=== PATIENT | male | born 1970 | race African-American/Black ===

== ENCOUNTER 2017-03-19 15:14 | Inpatient (IN) ==
--- NOTE | 2017-03-19 15:49 | Emergency Department Note ---
Carmela Morgan Mantricia, am scribing for, and in the presence of, Kennedy Hernandes MD 15:45. Greta Morgan James D, MD, personally performed the services described in this documentation, ascribed by Jorge Casey in my presence, and it is both accurate and complete . Arrival - Arrival Chief Complaint: Chest Pain ED Nursing Triage Note: PT SMOKED SPICE AND WENT TO [facility] FOR TREATMENT. Mode of Arrival: Stretcher Limitations: No Limitations Source: Patient, RN Notes Reviewed Time Seen by Provider: 03/19/17 15:34 - History of Present Illness HPI Narrative: Pt is a 46 y/o black female arriving to ED by EMS with c/o chest pain that onset last night. Pt was seen at [facility] for chest pain. It was realized that pt had an elevated troponin level, so he was called back to [facility]. Pt's troponin level was the same, so he was then transferred here. At time of exam, pt denies any chest pain. He does admit to smoking spice last night, before returning to [facility]. Pt denies having any heart problems. He also admits to smoking cigars daily and consuming ETOH occasionally. No other complaints were reported to ED. Onset (ago): hour(s) Consistency: constant Severity: mild Allergies/Adverse Reactions: Allergies Allergy/AdvReac Type Severity Reaction Status Date / Time cephalexin [From Keflex] Allergy RASH Verified 06/17/15 04:21 sulfamethoxazole Allergy RASH Verified 06/17/15 04:21 [From Bactrim] trimethoprim [From Bactrim] Allergy RASH Verified 06/17/15 04:21 Home Medications: Home Medications Medication Instructions Recorded Confirmed Type No Known Home Medications [No 03/19/17 03/19/17 History Known Home Medications] Review of System - Review of System 12 point system: reviewed and no additional remarkable complaints except as stated - Review of System Constitutional: Present: other (smoked spice). Absent: chills, diaphoresis, fever Respiratory: Absent: cough Cardiovascular: Present: chest pain. Absent: palpitations Gastrointestinal: Absent: abdominal pain, nausea, vomiting Medical,Surgical,& Family Hx - Social History Smoking Status: Smoker, status unknown Exam Physical Examination: ADULT: GENERAL: This is a well-nourished, well-developed black male in no apparent distress. VITAL SIGNS: Reviewed HEENT: Head is normocephalic and atraumatic. Pupils are equally round and reactive to light. Extraocular movement are intact. Oropharynx is benign with moist mucous membranes. NECK: Neck is soft and supple without tenderness. There are no masses. There is no lymphadenopathy. LUNGS: Lungs are clear to auscultation bilaterally. Chest rises symmetrically. There is no chest wall tenderness. CV: Heart is regular rate and rhythm without murmurs, rubs, or gallops. ABDOMEN: Abdomen is soft, non-tender to palpation. There are no abnormal masses palpated. There is no organomegaly. Bowel sounds are present and active. SKIN: Skin is warm and dry. No rash. EXTREMITIES: Patient has full range of motion without tenderness. There is no pedal edema. NEUROLOGIC: Awake, alert, and oriented x4. Cranial nerves II through XII are grossly intact. There are no motorsensory deficits. PSYCHIATRIC: Normal affect. Normal mood. Vital Signs: Vital Signs Temperature 97.8 F 03/19/17 15:20 Pulse Rate 56 L 03/19/17 16:45 Respiratory Rate 23 03/19/17 16:45 Blood Pressure 142/75 03/19/17 16:45 O2 Sat by Pulse Oximetry 100 03/19/17 16:45 Course Course Narrative: Patient was not felt to need hospitalization regarding cardiac disease however after the hospitalist saw him he went outside and smoke some more spice and is now having hallucinations. The patient will be admitted due to his drug abuse and complications from his recent use of spice. - Consultations Consultation #1: Discussed with hospitalist. Patient will be seen in the emergency department. Patient will be admitted to their service. Time: 16:18 Results - Labs Lab Results: I have reviewed the patients labs - EKG EKG results: interpreted by ERMD - Impressions EKG: Sinus bradycardia with a rate of 53, LVH with repolarization abnormality. - Diagnostic Findings Procedure: Chest x-ray: image reviewed by me (C[facility] x[facility]ray from [facility]: No cardiomegaly, no infiltrates, no pleural effusions.) Disposition Clinical Impression: Chest pain, Elevated troponin, Spice abuse Case discussed with: patient Disposition: Still a Patient Condition: Stable Time of Disposition: 16:18
--- NOTE | 2017-03-19 15:49 | EKG Report ---
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
--- NOTE | 2017-03-19 18:29 | Hospitalist History & Physical ---
Assessment and Plan (1) Chest pain Status: Acute Assessment and plan: Patient with a mildly elevated troponin 0.172 in the context of smoking spice and with an EKG that shows LVH with ST-T changes. My recommendation would be to watch him at this time and see how he does as his delirium clears make a decision at that point whether or not he needs noninvasive screening my plan at this time would be to give him serial cardiac isoenzymes repeat EKG if he has more chest pain and watch carefully Current Visit: Yes (2) Marijuana intoxication Status: Acute Assessment and plan: This is a patient's been smoking spice the last couple of days presented with delirium and chest pain he is currently not have any chest pain at this time he is semi-alert his judgment is poor he knows where he is and what year it is. He has no signs and symptoms of acute severe intoxication there is no evidence of seizures no evidence of arrhythmias my plan at this time spent in the ICU to manage his agitation will use benzodiazepines and will watch him carefully been given some IV fluids and start him on some thiamine will watch carefully while he is here in the hospital. No need for mechanical ventilation or other supportive measures Current Visit: Yes History of Present Illness Chief complaint: Spice intoxication History of present illness: Mr. Burdick is a 46 year old male patient presented with chest pain that started last night was seen at [facility] was found to have an elevated troponin and was asked to come back to show but was found to have a troponin he admitted to smoking spice last night and apparently left from the ER and smoked it again he continues smokes cigars and consumes EtOH occasionally currently he is awake and alert he denies any chest pain or chest tightness no shortness of breath PND or orthopnea Home Medications Medication Instructions Recorded Confirmed Type No Known Home Medications [No 03/19/17 03/19/17 History Known Home Medications] Allergies Allergy/AdvReac Type Severity Reaction Status Date / Time cephalexin [From Keflex] Allergy RASH Verified 06/17/15 04:21 sulfamethoxazole Allergy RASH Verified 06/17/15 04:21 [From Bactrim] trimethoprim [From Bactrim] Allergy RASH Verified 06/17/15 04:21 Medical,Surgical,& Family Hx - Family History Family History: Denies;: Family Cancer, Family Psychiatric Problems - Social History Smoking Status: Current every day smoker Time spent discussing smoking cessation with patient: 3 to 10 minutes Frequency of Alcohol Use: Unknown Type of Drug Use: Marijuana Review of systems: Constitutional: No fatigue or fever Eyes: No loss of vision or blurred vision Ears: No decreased hearing no ear pain Mouth no lip swelling or sore throat Cardiovascular no chest pain no claudication Respiratory no cough or shortness of breath GI no abdominal pain or bloating or bleeding : No urinary frequency or hesitancy musculoskeletal: No Arthralgias or back pain Psychiatric: Confusion memory loss Endocrine: No polydipsia or polyuria Hematology: No easy bleeding or bruising 12 point review of systems otherwise unremarkable Exam - Constitutional Vitals: Period Temp Pulse Resp BP Sys/Garcia Pulse Ox Last 24 Hr 97.8 F-97.8 F 55-61 16-23 134-153/71-79 100-100 Exam: Constitutional: Patient in no apparent distress. Patient currently agitated Eyes: Conjunctivae and lids are normal Pupils equal round react to light and accommodation irises are normal HEENT: External ears and nose without lesions masses or scarring Oropharynx without erythema exudates or thrush Neck is supple without masses no jugular venous distention Lungs: Lungs are clear to auscultation and resonant percussion Cardiovascular: Heart auscultation regular rate and rhythm without murmur rub or gallop PMI in the midclavicular line by palpation carotid arteries 2+ without bruits bowel abdomen: Bowel sounds normoactive no masses no rebound or regular tenderness no organomegaly Lymphatic: No anterior posterior cervical or axillary adenopathy Musculoskeletal: No active synovitis no malalignment of the joints good range of motion of upper and lower extremities Skin : normal to inspection and palpation Neurologic: Cranial nerves II through XII intact motor sensory intact DTRs 2+ negative cerebellar signs Psychiatric: Oriented to person place and time normal memory normal mood and affect poor judgment
[2017-03-19] MEDS: DEXTROSE 5% NACL 0.45% 1,000 ML IV SCH (20:34)
[2017-03-19] MEDS ORDERED: LORazepam 2 MG/1 ML VIAL ONE (20:49)
[2017-03-19] MEDS ORDERED: ETOMIDATE 20 MG/10 ML VIAL IV ONE ×2 (20:52→20:53)
[2017-03-19] MEDS ORDERED: SUCCINYLCHOLINE 200 MG/10 ML VIAL ONE ×2 (20:52→20:57)
[2017-03-19] MEDS ORDERED: PROPOFOL 1,000 MG/100 ML BOTTLE IV ONE (20:55)
[2017-03-19] MEDS ORDERED: MIDAZOLAM 10 MG/2 ML VIAL ONE (20:56)
[2017-03-19 20:59] LABS: Troponin I Only 0.153 NG/ML (0.00-0.045)
[2017-03-19] MEDS: PROPOFOL 1,000 MG/100 ML BOTTLE IV SCH (21:02)
--- NOTE | 2017-03-19 21:23 | Hospitalist Progress Note ---
Assessment and Plan (1) Seizure-like activity Status: Acute Assessment and plan: most likely due to spice. Plan Continue intubation and sedation CT head Cardiac enzymes IV morphine IV phenytoin Consider Neuro consult in am. Serial ABGs CXR- seen. Current Visit: Yes Hospitalist: Subjective Interval history: I was called to see this 46yr old who was admitted for marijuana intoxication and was placed in the unit. He was was doing ok when he arrived and later took what was suspicious of spice in his room and started having seizure-like activities. He was given some ativan but later became more agitated, aggressive , combative, extremely confused and was subsequently intubated for airway protection. He received a total of 300mg succinylcholine and 20mg of etomidate and has been started on sedation. His vitals remained stable throughout. Exam - Constitutional Vitals: Period Temp Pulse Resp BP Sys/Garcia Pulse Ox Last 24 Hr 97.8 F-97.8 F 55-75 16-23 134-153/71-79 98-100 General appearance: no acute distress, other (intubated and sedated) - Head Head exam: Present: normal inspection - Respiratory Respiratory exam: Present: clear to auscultation bilaterally - Cardiovascular Cardiovascular exam: Present: regular rate and rhythm - GI/Abdominal GI/Abdominal exam: Present: normal bowel sounds - Extremities Exam Extremities exam: Present: normal inspection Results - Labs Lab Results: I have reviewed the past 24 hour labs
[2017-03-19] MEDS ORDERED: PHENYTOIN 100 MG/2 ML VIAL IV ONE (21:26)
[2017-03-19] MEDS ORDERED: PHENobarbital 130 MG/1 ML VIAL IV ONE (21:35)
[2017-03-19] MEDS ORDERED: LORazepam 2 MG/1 ML VIAL IV PRN (21:37)
[2017-03-19 22:19] LABS: Eosinophils % 0.4 % (0.00-10.9); Hematocrit 35.6 VOL% (42.0-52.0); Hemoglobin 12.2 GM/DL (14.0-18.0); Immature Granulocytes % 0.4 %; Immature Granulocytes Absolute 0.02 #; Lymphocytes # 0.8 10*3/uL (1.4-4.0); Lymphocytes % 16.9 % (21.2-54.2); Mean Corpuscular HGB Conc 34.3 GM/DL (32-36); Mean Corpuscular Hemoglobin 30 PG (27-34); Mean Platelet Volume 11.4 FL (9.6-12.0); Monocytes # 0.5 10*3/uL (0.11-0.8); Monocytes % 11.1 % (1.7-12.7); Neutrophils # 3.4 10*3/uL (1.4-7.4); Neutrophils % 71.2 % (38.7-73.9); Platelet Count 129 T/CUMM (130-400); Red Blood Count 4.14 MC/CUMM (3.8-5.5); Red Cell Distribution Width 14.6 % (9.3-17.3); White Blood Count 4.8 T/CUMM (4-12)
[2017-03-19 22:27] LABS: ABG Base Excess 3.7 MMOL/L (-2.5-2.5); ABG HCO3 27.8 MMOL/L (20-26); ABG Oxygen Saturation 99.9 % (95-100); ABG PCO2 44.1 MM HG (35-48); ABG PH 7.422 (7.35-7.45); ABG TCO2 25.3 MMOL/L (23-27); Allen Test Positive; Pt O2 Delivery Device Ventilator
[2017-03-19 22:42] LABS: Alanine Aminotransferase 18 U/L (16-61); Albumin 3.1 G/DL (3.4-5.0); Alkaline Phosphatase 58 U/L (45-117); Aspartate Amino Transferase 26 U/L (0-37); Bilirubin,Total < 0.39 MG/DL (0.2-1.0); Blood Urea Nitrogen 11 MG/DL (7-18); Calcium 8.2 MG/DL (8.5-10.1); Glucose 122 MG/DL (74-106); Osmolality,Calculated 282.1 MOS/KG (273-304); Potassium 3.9 MMOL/L (3.5-5.1); Sodium 142 MMOL/L (136-145); Total Protein 6.1 G/DL (6.4-8.3)
[2017-03-19 22:43] LABS: Troponin I Only 0.159 NG/ML (0.00-0.045)
[2017-03-19 22:43] LABS: Barbiturates Screen,Urine Negative (Negative); Benzodiazepines Screen,Urine Negative (Negative); Cannabinoid Screen,Urine Positive (Negative); Opiate Screen,Urine Negative (Negative); Phencyclidine Screen,Urine Negative (Negative)
[2017-03-19 23:21] LABS: Apearance,Urine Slightly Hazy (Clear); Bacteria,Urine Occasional /HPF (Few); Bilirubin,Urine Negative (Negative); Blood, Urine Negative (Negative); Glucose,Urine (UA) Negative (Negative); Hyaline Casts,Urine 7 /LPF (0-3); Ketones,Urine Negative (Negative); Mucus,Urine Occasional /LPF (Occasional); Nitrite,Urine Negative (Negative); Protein,Urine 100 MG/DL; RBC,Urine 1 /HPF (0-4); Squamous Epithelial Cell,Urine Occasional /HPF (0-10); Urine Color Yellow (Yellow); Urine Specific Gravity 1.025 (1.001-1.035); WBC,Urine 2 /HPF (0-6)
[2017-03-20] MEDS: PROPOFOL 1,000 MG/100 ML BOTTLE IV SCH ×2 (01:58→06:20)
[2017-03-20 03:25] LABS: ABG Base Excess 2.3 MMOL/L (-2.5-2.5); ABG HCO3 24.8 MMOL/L (20-26); ABG Oxygen Saturation 99.1 % (95-100); ABG PCO2 32.2 MM HG (35-48); ABG PH 7.505 (7.35-7.45); ABG TCO2 25.8 MMOL/L (23-27); Allen Test Positive; Pt O2 Delivery Device Ventilator
[2017-03-20 04:51] LABS: Basophils % 0.2 % (0.0-0.8); Eosinophils % 0.6 % (0.00-10.9); Hematocrit 36.8 VOL% (42.0-52.0); Hemoglobin 12.6 GM/DL (14.0-18.0); Immature Granulocytes % 0.2 %; Immature Granulocytes Absolute 0.01 #; Lymphocytes # 1.9 10*3/uL (1.4-4.0); Lymphocytes % 36.9 % (21.2-54.2); Mean Corpuscular HGB Conc 34.2 GM/DL (32-36); Mean Corpuscular Hemoglobin 29 PG (27-34); Mean Platelet Volume 11.8 FL (9.6-12.0); Monocytes # 0.6 10*3/uL (0.11-0.8); Monocytes % 12.4 % (1.7-12.7); Neutrophils # 2.5 10*3/uL (1.4-7.4); Neutrophils % 49.7 % (38.7-73.9); Platelet Count 142 T/CUMM (130-400); Red Blood Count 4.33 MC/CUMM (3.8-5.5); Red Cell Distribution Width 14.5 % (9.3-17.3); White Blood Count 5.1 T/CUMM (4-12)
[2017-03-20 05:28] LABS: CKMB % 0.8 %
[2017-03-20 05:33] LABS: Troponin I Only 0.166 NG/ML (0.00-0.045)
[2017-03-20 05:46] LABS: Alanine Aminotransferase 19 U/L (16-61); Albumin 3.1 G/DL (3.4-5.0); Alkaline Phosphatase 55 U/L (45-117); Aspartate Amino Transferase 32 U/L (0-37); Bilirubin,Total < 0.39 MG/DL (0.2-1.0); Blood Urea Nitrogen 9 MG/DL (7-18); Calcium 8.2 MG/DL (8.5-10.1); Glucose 90 MG/DL (74-106); Osmolality,Calculated 284.8 MOS/KG (273-304); Potassium 3.3 MMOL/L (3.5-5.1); Sodium 144 MMOL/L (136-145)
[2017-03-20] MEDS: DEXTROSE 5% NACL 0.45% 1,000 ML IV SCH (06:06)
--- NOTE | 2017-03-20 06:16 | CT Report ---
History: Seizures Date: 03/19/2017 Study: CT head without contrast Comparison exam: Outside CT March 18, [address] sections were obtained through the head without IV contrast. The study was also reviewed by [facility]. This CT exam was performed using one or more the following dose reduction techniques: Automated exposure control, adjustment of the MA and/or KV according to patient size, or use of iterative reconstruction technique. The ventricles are midline in position without evidence of hydrocephalus. There is no mass or area of parenchymal hemorrhage. There is no gross CT evidence of acute cortical stroke. There is no extra-axial hematoma. There is no acute abnormality of the calvarium. There is some chronic deformity of the lamina papyracea on the right which could be related to remote trauma Impression: No acute intracranial process PROCEDURE INTERPRETED AT [facility] DEPARTMENT OF RADIOLOGY Final Report Signed by: Dr. Sybil Briseno
--- NOTE | 2017-03-20 06:34 | XRay Report ---
Exam: XR chest 1V portable Date: 03/19/2017 9:06 PM Indication: Endotracheal tube placement Comparison: 03/18/2017 Technical: AP portable Findings: Endotracheal tube has been placed the level of mid clavicle. External cardiac leads are present. Patchy interstitial densities present in the right perihilar region. A few reticular nodular densities are present. Minimal alveolar densities are present lung lipscomb bilaterally. No obvious effusions or pneumothorax. Mediastinum and bony structures are unremarkable. Impression: 1. Interval placement of endotracheal tube the mid clavicle 2. Patchy interstitial infiltrate right base infrahilar region with some alveolar densities in both perihilar regions as well as reticular nodular densities and/or granuloma changes PROCEDURE INTERPRETED AT [facility] DEPARTMENT OF RADIOLOGY Final Report Signed by: Dr. Avni Neff
--- NOTE | 2017-03-20 07:33 | EKG Report ---
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
[2017-03-20] MEDS ORDERED: hydrALAZINE 20 MG/1 ML VIAL IV ONE (08:34)
[2017-03-20] MEDS ORDERED: hydrALAZINE 20 MG/1 ML VIAL ONE (08:39)
[2017-03-20] MEDS ORDERED: hydrALAZINE 20 MG/1 ML VIAL IV PRN (08:40)
[2017-03-20 08:49] LABS: Pt O2 Delivery Device Room Air
[2017-03-20 08:50] LABS: ABG Base Excess 0.9 MMOL/L (-2.5-2.5); ABG HCO3 25.2 MMOL/L (20-26); ABG PCO2 41.2 MM HG (35-48); ABG PH 7.404 (7.35-7.45); ABG PO2 89.9 MM HG (80-95); ABG TCO2 22.1 MMOL/L (23-27)
[2017-03-20] MEDS ORDERED: PANTOPRAZOLE 40 MG VIAL IV SCH (09:00)
[2017-03-20] MEDS ORDERED: THIAMINE 100 MG TABLET PO SCH (09:00)
--- NOTE | 2017-03-20 09:50 | Pulmonology Consult Note ---
History of Present Illness Chief complaint: Drug overdose. Ventilator. Combated. History of present illness: Mr. Burdick is a 46 year old black male whom I was asked to see her earlier this morning in pulmonary consultation This patient has significant history which is been documented by other doctors and nurses notes. Short version is she was seen with a drug overdose and show a [facility]. He left AMA. His troponins were up and I called him and told him that he was in the process of having heart attack. He came here. Outside of our emergency room he smoked spice. He then became combative with the nurses and the ER. He was admitted to ICU and again became combative with the nurses. He then was found smoking spice again in his ICU room. Patient was having hallucinations and developed seizures. He required intubation mechanical ventilation. I evaluated patient with chest x-ray and ABGs and physical exam. Were able to back off on his sedation. He is covered with anti-seizure medicines. He did well on the T-tube and he is been extubated. He is combated had to be restrained security was called he is threatening nurses. Initially he said fixed and active full in here and will quit all of your asses. Security was called. Then he told the nurse a little later on, I am about to go to [facility] on your ass bitch. Present time patient's off mechanical ventilation and is having no trouble breathing. His PO2 is 89 on room air. Other than the above the patient's review of systems is noncontributory. Allergies. Keflex, Bactrim. Home medicines. None known. Past history. Patient was not forthcoming. Social history. Daily smoker. Based on toxicology he is a user of spice marijuana and cocaine Family history. Denies any known medical problems Toxicology. See report. Positive for cocaine and cannabinoids. Lab. Urinalysis negative. CBC is normal. Electrolytes are normal with a potassium of 3.3. Creatinine is 1.0 down from 1.2. BUN is 9. Liver function tests are normal. Total CPK is 6 784. Troponin is 0.166. Protein and albumin low at 6.0 and 3.1 respectively. Chest x-ray. Slight generalized increased interstitial markings bilaterally. These are symmetrical. No infiltrates. No heart failure. ABGs. Room air. PH 7.404, PCO2 41.2, PO2 89.9, bicarb 25.2 Physical exam. Vital signs. See below. Afebrile Psychiatric. Combated. Irrational. Neurologic. Cranial nerves are intact. Long track motor functions intact. No recurrence of seizure. Face. Symmetrical. No edema of the lips or tongue. Neck. Symmetrical. No meningismus and no masses. Lymphatics. No submandibular cervical supraclavicular or epitrochlear adenopathy Chest. Slight coarseness of large airway breath sounds bilaterally Heart. No gallop. Abdomen. Nondistended. Rare bowel sounds Extremities. Nothing to suggest deep venous thrombophlebitis Musculoskeletal. No gross abnormalities of the cervical thoracic or lumbar spine seen on limited exam. The remainder the exam was noncontributory. Impression. 1. Acute respiratory failure secondary to overdose of medicines. Resolved. Patient has been extubated. 2. Drug abuse. Appears to include marijuana, cocaine and spice. 3. Tobacco abuse 4. Seizure. [place] to be drug-induced. 5. Combated and irrational. This is at least partially drug-related. Patient may have an underlying psychiatric disease. 6. See other doctors notes. 7. Minor elevation of troponin which is probably drug related Plan. 1. Patient has been extubated 2. Chest x-ray and ABGs in the morning 3. Security needs to be with this patient at all times Home Medications Medication Instructions Recorded Confirmed Type No Known Home Medications [No 03/19/17 03/19/17 History Known Home Medications] Allergies Allergy/AdvReac Type Severity Reaction Status Date / Time cephalexin [From Keflex] Allergy RASH Verified 06/17/15 04:21 sulfamethoxazole Allergy RASH Verified 06/17/15 04:21 [From Bactrim] trimethoprim [From Bactrim] Allergy RASH Verified 06/17/15 04:21 Exam (Pulmonay) H&P - Constitutional Vitals: Period Temp Pulse Resp BP Sys/Garcia Pulse Ox Last 24 Hr 97.0 F-98.5 F 48-89 11-23 111-220/60-103 89-100 Medical,Surgical,& Family Hx - Family History Family History: Reports;: Family Cancer (Father), Family Diabetes (Mother & Father), Family Hypertension (Mother & Father) Denies;: Family Psychiatric Problems - Social History Smoking Status: Current every day smoker Frequency of Alcohol Use: Rarely Type of Drug Use: Cocaine, Marijuana Results - Labs CBC & BMP: 03/20/17 03:59 03/20/17 03:59
--- NOTE | 2017-03-20 11:47 | Hospitalist Progress Note ---
Assessment and Plan (1) Drug abuse Status: Acute Assessment and plan: 1) He smoked spice yesterday, before he came here, once in our parking lot and again in the ICU room which led to his seizure and intubation. He is now threatening and agitated. refer to [place]. Security will stay with him. 2)HTN- better after hydralazine given. He denies history of HTN. 3)homeless. 4)elevated troponin- EKG looks ok, no chest pain now. His troponins are static around 0.16. This is not acute cardiac syndrome, but is related to his drug use. He was positive for cocaine and MJ. Current Visit: Yes (2) Elevated troponin Status: Acute Current Visit: Yes (3) Seizure-like activity Status: Acute Current Visit: Yes Hospitalist: Subjective Interval history: After ttube trial this morning he was extubated. He has become more agitated as the morning has passed, and has threatened to hurt/kill the nurses and me. He complains that he did not give permission for treatment and should not have had intubation, galeano, monitors, IVs etc. He denies having a seizure even when we explain that it was witnessed here and that we intubated him emergently. 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 He does not seem to have family though he mentioned a sister once he then said no to whether he had sibs or parents or friends. He is homeless and works 3 jobs. He is despairing because he does not have a ride back to [place]. He wants to leave. Repeat BP was 150/80. I think he is medically stable to go to [place]. They have been summoned for evaluation and we can start a 72 hour hold as necessary to transfer him there. I think his threatening behaviors make him a danger to others. He has not mentioned hurting himself. Exam - Constitutional Vitals: Period Temp Pulse Resp BP Sys/Garcia Pulse Ox Last 24 Hr 97.0 F-98.5 F 48-89 11-23 111-220/60-103 89-100 General appearance: normal weight (agitated, pacing, menacing stance. ) - Eye Eye exam: Present: EOMI. Absent: scleral icterus - Respiratory Respiratory exam: Present: clear to auscultation bilaterally - Cardiovascular Cardiovascular exam: Present: regular rate and rhythm - GI/Abdominal GI/Abdominal exam: Present: normal bowel sounds, soft - Extremities Exam Extremities exam: Absent: edema Results - Labs CBC & BMP: 03/20/17 03:59 03/20/17 03:59 Lab Results: I have reviewed the past 24 hour labs
[2017-03-20 12:42] VITALS: BP 150/80
--- NOTE | 2017-03-20 13:52 | Discharge Summary ---
Hospital Course - Hospital Course Hospital Course: Mr Burdick was transferred from [facility] for eval mild elevation of troponins. He had been smoking spice and was positive for cocaine and marijuana. He smoked spice twice more while here at the hospital, the last time in his ICU room. After that his behavior became even more uncontrolled and he had seizure like activity. He was intubated and on vent overnight. He was extubated this morning. He has been very upset and reported that he never gave consent for treatment, that he wants to go home to [place] and he wants the hospital to pay for him to go. He is not disoriented. He has an aggressive manner and has made threats to all of our jobs and said he was going to "go gangster on our aes" but when the viner operator from [place] talked to him he said he knows he said that but has no intention of hurting anyone. He has no suicidal ideas or plans either. He refuses to go voluntarily to [place] for drug treatment. [place] says he cannot be held for behaviors due to drug intoxication and that he is not suicidal or homicidal and should be discharged as he requests. He will be discharged. He has not had any further seizure like activity, and the doctor's present last night thought he was having spasms due to intoxication , not true seizure. He has had no respiratory difficulties since extubation. His blood pressure as high earlier, last one 150/80, but he refuses to let us check it again. Case management will arrange cab ride to [facility]. He will follow up with PCP in [facility]- the caseworker protective services can give him a list of names. He should also go to outpatient drug counseling. He has been advised that he should not use drugs. - Time spent with patient Time with patient DS: Greater than 30 minutes (prolonged counseling with patient , care coordination with nursing staff and [place] viner operator and risk management , documentation, medicine reconciliation.) Diagnosis - Discharge Diagnosis (1) Drug abuse Status: Acute (2) Elevated troponin Status: Resolved (3) Seizure-like activity Status: Resolved Specialty Discharge - Follow Up or Referrals Follow up with: MICHAEL, outpatient drug counseling [Other] A, PCP [Other] (3 days) Discharge Plan - Discharge Data Disposition: Disch To Home/Self Care Condition at Discharge: Stable Discharge Diet: regular diet Activity: resume usual activities as tolerated - Discharge Medications No Action No Known Home Medications [No Known Home Medications] - Follow Up or Referral - Forms/Instructions Additional Discharge Instructions: stop using drugs. They are hurting you. Exam - Constitutional Vitals: Period Temp Pulse Resp BP Sys/Garcia Pulse Ox Last 24 Hr 97.0 F-98.5 F 48-98 11-23 111-220/60-103 89-100 General appearance: normal weight, no acute distress (lying quietly on the bed, cooperative to a point, no longer threatening.) - Head Head exam: Present: normocephalic, atraumatic - Eye Eye exam: Present: EOMI. Absent: scleral icterus Pupils: Present: SANGEETHA - Respiratory Respiratory exam: Present: clear to auscultation bilaterally - Cardiovascular Cardiovascular exam: Present: regular rate and rhythm - GI/Abdominal GI/Abdominal exam: Present: normal bowel sounds, soft - Extremities Exam Extremities exam: Absent: edema Discharge Results Procedures and tests throughout hospitalization: Pending Orders 03/19/17 20:37 MRSA Surveillence, Inf Control Routine 03/21/17 04:00 XR chest 1V portable IN AM ABG [Arterial Blood Gas] IN AM Comp Blood Count Auto Diff IN AM Comprehensive Metabolic Panel IN AM 03/22/17 04:00 Comp Blood Count Auto Diff IN AM Comprehensive Metabolic Panel IN AM Labs on day of discharge: Labs from last 24 hours 03/20/17 03/20/17 03/20/17 08:47 03:59 03:59 WBC 5.1 RBC 4.33 Hgb 12.6 L Hct 36.8 L MCV 85.0 L MCH 29 MCHC 34.2 RDW 14.5 Plt Count 142 MPV 11.8 Neut % (Auto) 49.7 Lymph % (Auto) 36.9 Mathews % (Auto) 12.4 Eos % (Auto) 0.6 Baso % (Auto) 0.2 Neut # (Auto) 2.5 Lymph # (Auto) 1.9 Mathews # (Auto) 0.6 Eos # (Auto) 0.0 Baso # (Auto) 0.0 Immature Gran % 0.2 Nucleated RBC % 0.0 Immature Gran # 0.01 Nucleated RBCs # 0.00 Immature Plt Fraction 0.0 ABG pH 7.404 ABG pCO2 41.2 ABG pO2 89.9 ABG HCO3 25.2 ABG Total CO2 22.1 L ABG O2 Saturation 97.0 ABG Base Excess 0.9 FiO2 21.00 Sodium 144 Potassium 3.3 L Chloride 110 H Carbon Dioxide 27 Anion Gap 10.3 BUN 9 Creatinine 1.00 GFR Calculation 118 BUN/Creatinine Ratio 9.00 Glucose 90 Calculated Osmolality 284.8 Calcium 8.2 L Total Bilirubin < 0.39 AST 32 ALT 19 Alkaline Phosphatase 55 Total Creatine Kinase CK-MB (CK-2) CK and CKMB Interp Troponin I Total Protein 6.0 L Albumin 3.1 L Globulin 2.9 Albumin/Globulin Ratio 1.0 L Urine Color Urine Appearance Urine pH Ur Specific [place] Urine Protein Urine Glucose (UA) Urine Ketones Urine Blood Urine Nitrate Urine Bilirubin Urine Urobilinogen Urine Leukocytes Urine RBC Urine WBC Ur Squamous Epith Cells Urine Bacteria Hyaline Casts Urine Mucus Ur Culture Indicated? Urine Opiates Screen Ur Barbiturates Screen Ur Phencyclidine Scrn U Amphetamine/Methamph U Benzodiazepines Scrn U Cocaine Metab Screen U Cannabinoids Screen 03/20/17 03/20/17 03/19/17 03:59 03:10 22:11 WBC RBC Hgb Hct MCV MCH MCHC RDW Plt Count MPV Neut % (Auto) Lymph % (Auto) Mathews % (Auto) Eos % (Auto) Baso % (Auto) Neut # (Auto) Lymph # (Auto) Mathews # (Auto) Eos # (Auto) Baso # (Auto) Immature Gran % Nucleated RBC % Immature Gran # Nucleated RBCs # Immature Plt Fraction ABG pH 7.505 H ABG pCO2 32.2 L ABG pO2 303.0 H ABG HCO3 24.8 ABG Total CO2 25.8 ABG O2 Saturation 99.1 ABG Base Excess 2.3 FiO2 0.00 Sodium 142 Potassium 3.9 Chloride 107 Carbon Dioxide 28 Anion Gap 10.9 BUN 11 Creatinine 1.20 GFR Calculation 94 BUN/Creatinine Ratio 9.00 Glucose 122 H Calculated Osmolality 282.1 Calcium 8.2 L Total Bilirubin < 0.39 AST 26 ALT 18 Alkaline Phosphatase 58 Total Creatine Kinase 784 H 659 H CK-MB (CK-2) 6.1 H 4.2 H CK and CKMB Interp 0.8 Troponin I 0.166 H 0.159 H Total Protein 6.1 L Albumin 3.1 L Globulin 3.0 Albumin/Globulin Ratio 1.0 L Urine Color Urine Appearance Urine pH Ur Specific [place] Urine Protein Urine Glucose (UA) Urine Ketones Urine Blood Urine Nitrate Urine Bilirubin Urine Urobilinogen Urine Leukocytes Urine RBC Urine WBC Ur Squamous Epith Cells Urine Bacteria Hyaline Casts Urine Mucus Ur Culture Indicated? Urine Opiates Screen Ur Barbiturates Screen Ur Phencyclidine Scrn U Amphetamine/Methamph U Benzodiazepines Scrn U Cocaine Metab Screen U Cannabinoids Screen 03/19/17 03/19/17 03/19/17 22:11 21:46 21:45 WBC 4.8 RBC 4.14 Hgb 12.2 L Hct 35.6 L MCV 86.0 L MCH 30 MCHC 34.3 RDW 14.6 Plt Count 129 L MPV 11.4 Neut % (Auto) 71.2 Lymph % (Auto) 16.9 L Mathews % (Auto) 11.1 Eos % (Auto) 0.4 Baso % (Auto) 0.0 Neut # (Auto) 3.4 Lymph # (Auto) 0.8 L Mathews # (Auto) 0.5 Eos # (Auto) 0.0 Baso # (Auto) 0.0 Immature Gran % 0.4 Nucleated RBC % 0.0 Immature Gran # 0.02 Nucleated RBCs # 0.00 Immature Plt Fraction 0.0 ABG pH 7.422 ABG pCO2 44.1 ABG pO2 266.0 H ABG HCO3 27.8 H ABG Total CO2 25.3 ABG O2 Saturation 99.9 ABG Base Excess 3.7 H FiO2 50.00 Sodium Potassium Chloride Carbon Dioxide Anion Gap BUN Creatinine GFR Calculation BUN/Creatinine Ratio Glucose Calculated Osmolality Calcium Total Bilirubin AST ALT Alkaline Phosphatase Total Creatine Kinase CK-MB (CK-2) CK and CKMB Interp Troponin I Total Protein Albumin Globulin Albumin/Globulin Ratio Urine Color Yellow Urine Appearance Slightly hazy Urine pH 5.0 Ur Specific [place] 1.025 Urine Protein 100 Urine Glucose (UA) Negative Urine Ketones Negative Urine Blood Negative Urine Nitrate Negative Urine Bilirubin Negative Urine Urobilinogen 4.0 H Urine Leukocytes Negative Urine RBC 1 Urine WBC 2 Ur Squamous Epith Cells Occasional Urine Bacteria Occasional Hyaline Casts 7 Urine Mucus Occasional Ur Culture Indicated? Not indicated Urine Opiates Screen Ur Barbiturates Screen Ur Phencyclidine Scrn U Amphetamine/Methamph U Benzodiazepines Scrn U Cocaine Metab Screen U Cannabinoids Screen 03/19/17 03/19/17 03/19/17 21:45 20:28 16:03 WBC RBC Hgb Hct MCV MCH MCHC RDW Plt Count MPV Neut % (Auto) Lymph % (Auto) Mathews % (Auto) Eos % (Auto) Baso % (Auto) Neut # (Auto) Lymph # (Auto) Mathews # (Auto) Eos # (Auto) Baso # (Auto) Immature Gran % Nucleated RBC % Immature Gran # Nucleated RBCs # Immature Plt Fraction ABG pH ABG pCO2 ABG pO2 ABG HCO3 ABG Total CO2 ABG O2 Saturation ABG Base Excess FiO2 Sodium Potassium Chloride Carbon Dioxide Anion Gap BUN Creatinine GFR Calculation BUN/Creatinine Ratio Glucose Calculated Osmolality Calcium Total Bilirubin AST ALT Alkaline Phosphatase Total Creatine Kinase 628 H CK-MB (CK-2) 3.5 CK and CKMB Interp Troponin I 0.153 H 0.172 H Total Protein Albumin Globulin Albumin/Globulin Ratio Urine Color Urine Appearance Urine pH Ur Specific [place] Urine Protein Urine Glucose (UA) Urine Ketones Urine Blood Urine Nitrate Urine Bilirubin Urine Urobilinogen Urine Leukocytes Urine RBC Urine WBC Ur Squamous Epith Cells Urine Bacteria Hyaline Casts Urine Mucus Ur Culture Indicated? Urine Opiates Screen Negative Ur Barbiturates Screen Negative Ur Phencyclidine Scrn Negative U Amphetamine/Methamph Negative U Benzodiazepines Scrn Negative U Cocaine Metab Screen Positive H U Cannabinoids Screen Positive H DS: Provider Date of admission: 03/19/17 18:37 Primary care physician: . No PCP Attending physician on admission: Frank Guerrero MD Consults: 03/19/17 20:07 Consult to Dietitian [CONS] Routine Reason for Dietitian: Other Consult Comment: admission assessment trigger 03/19/17 21:46 Consult to Physician [CONS] Routine Comment: vent management psychologist Provider: Avni Lim Consult to Specialist Group: Pulmonology When should Consulting Provider be notified: In am 03/20/17 09:32 Consult to Physical Therapy [CONS] Routine Reason for Physical Therapy: Evaluate and Treat 03/20/17 11:06 Consult to Case Mgmt/Social Srvs [CONS] Routine Reason for Case Mgmt/Social Srvs: Discharge Planning Psychiatric Management Consult Comment: [employer]? Discharging clinician: Yeimy Church MD
== END 2017-03-20 16:00 | disposition home or self-care (01) | DRG 918 ==
LOC: EDUNIT# → EDBD → N.ED 15:14 → SUATTDRO 18:37 → N.EDINP 18:37 → N.ICU 19:09
PROVIDERS: ADMIT Internal Medicine Pulmonary Disease; ATTEND Internal Medicine